=== PATIENT | male | born 1985 | race Caucasian/White ===

== ENCOUNTER 2016-12-30 00:13 | Emergency (ER) | payer BC, OTHER ==
[2016-12-30] VITALS (7 sets, daily range): BP systolic 104–119; BP diastolic 60–74; PULSE 65–78; RESP 14–18; TEMP 97.8–98.9; O2SAT 98–100
[~2016-12-30] VITALS: Ht 167.6 cm; Wt 55.0 kg
[2016-12-30] MEDS ORDERED: SODIUM CHLORIDE 0.9% FLUSH 10 ML FLUSH IVF PRN (01:15)
[2016-12-30 01:22] LABS: AUTOMATED NEUTROPHIL # 3.3 TH/MM3 (1.8-7.7); BASOPHIL % 0.5 % (0.0-2.0); EOSINOPHIL # 0.2 TH/MM3 (0-0.4); EOSINOPHIL % 2.9 % (0.0-4.0); HEMATOCRIT 39.3 % (39.0-51.0); HEMO FLAGS DIFF FINAL; LYMPH % 41.8 % (9.0-44.0); LYMPHOCYTE # 2.8 TH/MM3 (1.0-4.8); MEAN CELL VOLUME 90.5 FL (80.0-100.0); MEAN CORPUSCULAR HEMOGLOBIN 32.4 PG (27.0-34.0); MEAN CORPUSCULAR HGB CONC 35.8 % (32.0-36.0); MONO % 6.6 % (0.0-8.0); NEUT % 48.2 % (16.0-70.0); PLATELET COUNT 197 TH/MM3 (150-450); RED BLOOD COUNT 4.34 MIL/MM3 (4.50-5.90); RED CELL DISTRIBUTION WIDTH 12.7 % (11.6-17.2); WHITE BLOOD COUNT 6.8 TH/MM3 (4.0-11.0)
[2016-12-30 01:39] LABS: ALT (GPT) 18 U/L (12-78); ANION GAP 7 MEQ/L (5-15); AST (GOT) 15 U/L (15-37); BICARBONATE 27.5 MEQ/L (21.0-32.0); BLOOD UREA NITROGEN 10 MG/DL (7-18); CHLORIDE 112 MEQ/L (98-107); GLOMERULAR FILTRATION RATE 97 ML/MIN (>89); POTASSIUM 3.6 MEQ/L (3.5-5.1); SODIUM (NA) 146 MEQ/L (136-145)
[2016-12-30 01:41] LABS: ACETAMINOPHEN LESS THAN 2.0 MCG/ML (10.0-30.0); ALKALINE PHOSPHATASE 56 U/L (45-117); TOTAL BILIRUBIN ADULT 0.2 MG/DL (0.2-1.0)
[2016-12-30] MEDS ORDERED: SODIUM CHLOR 0.9% 1000 ML INJ 1,000 ML IV SCH (02:00)
[2016-12-30 02:46] LABS: BLOOD, URINE NEG (NEG); GLUCOSE,URINE NEG (NEG); KETONE, URINE NEG (NEG); NITRITE,URINE NEG (NEG); PH, URINE 5.5 (5.0-8.5); URINE COLOR LIGHT-YELLOW (YELLW/STRAW)
[2016-12-30 02:50] LABS: COMMENT (UR) CULT NOT INDICATED; CULTURE IF INDICATED CULT NOT INDICATED
[2016-12-30 02:53] LABS: AMPHETAMINE, URINE NEG (NEG); BARBITURATES, URINE NEG (NEG); COCAINE, URINE NEG (NEG)
--- NOTE | 2016-12-30 04:39 | PD ---
HPI Chief Complaint: OD/ Ingestion Time Seen by Provider: 01:05 Travel History International Travel<30 days: No Contact w/Intl Traveler<30days: No Traveled to known affect area: No History of Present Illness HPI This is a 31-year-old male who presents to the emergency department having been intoxicated and then intentionally taking 2 bottles of NyQuil. He says at that time he was trying to hurt himself but he doesn't really want to he was just going through some things. History is limited as patient is quite intoxicated. PFSH Past Medical History Immunizations Current: Yes Tetanus Vaccination: Unknown Influenza Vaccination: No Past Surgical History Surgical History: No Previous Surgery Social History Alcohol Use: Yes (SOCIALLY) Tobacco Use: Yes (SMOKES 1 PACK PER DAY, SMOKING FOR 2 YEARS, LAST SMOKED 15 MINS AGO) Substance Use: Yes (CIGARETTES 1 PACK PER DAY FOR 2 YEARS ) Allergies-Medications (Allergen,Severity, Reaction): Coded Allergies: No Known Allergies (Verified , 12/30/16) Reported Meds & Prescriptions Reported Meds & Active Scripts Active No Active Prescriptions or Reported Medications Review of Systems ROS Limitations: Intoxication Physical Exam Narrative GENERAL:Well appearing, no acute distress SKIN: Focused skin assessment warm and dry. HEAD: Atraumatic. Normocephalic. EYES: Pupils are dilated. no injection or drainage. ENT: Moist mucous membranes NECK: Trachea midline. CARDIOVASCULAR: Tachycardic. No murmur appreciated. RESPIRATORY: Clear to auscultation. Breath sounds equal bilaterally. GASTROINTESTINAL: Abdomen soft, non-tender, nondistended. MUSCULOSKELETAL: No obvious deformities. NEUROLOGICAL: Awake and alert. No obvious cranial nerve deficits. Moving all extremities. PSYCHIATRIC: Appropriate mood and affect; insight and judgment normal. Data Data Last Documented VS Vital Signs Date Time Temp Pulse Resp B/P Pulse Ox O2 Delivery O2 Flow Rate FiO2 12/30/16 03:30 77 16 111/74 99 Room Air 12/30/16 00:15 98.0 Orders Electrocardiogram (12/30/16 01:05) Complete Blood Count With Diff (12/30/16 01:05) Comprehensive Metabolic Panel (12/30/16 01:05) Urinalysis - C+S If Indicated (12/30/16 01:05) Iv Access Insert/Monitor (12/30/16 01:05) Ecg Monitoring (12/30/16 01:05) Oximetry (12/30/16 01:05) Sodium Chloride 0.9% Flush (Ns Flush) (12/30/16 01:15) Drug Screen, Random Urine (12/30/16 01:05) Alcohol (Ethanol) (12/30/16 01:05) Salicylates (Aspirin) (12/30/16 01:05) Tylenol (Acetaminophen) (12/30/16 01:05) Sodium Chlor 0.9% 1000 Ml Inj (Ns 1000 M (12/30/16 02:00) Psych Screen (12/30/16 02:08) Tylenol (Acetaminophen) (12/30/16 03:45) Salicylates (Aspirin) (12/30/16 03:45) Labs Laboratory Tests Test 12/30/16 12/30/16 12/30/16 00:30 01:05 03:55 Urine Color LIGHT-YELLOW Urine Turbidity CLEAR Urine pH 5.5 Urine Specific [place] 1.011 Urine Protein NEG mg/dL Urine Glucose (UA) NEG mg/dL Urine Ketones NEG mg/dL Urine Occult Blood NEG Urine Nitrite NEG Urine Bilirubin NEG Urine Urobilinogen LESS THAN 2.0 MG/DL Urine Leukocyte Esterase NEG Microscopic Urinalysis Comment CULT NOT INDICATED Urine Opiates Screen NEG Urine Barbiturates Screen NEG Urine Amphetamines Screen NEG Urine Benzodiazepines Screen NEG Urine Cocaine Screen NEG Urine Cannabinoids Screen NEG White Blood Count 6.8 TH/MM3 Red Blood Count 4.34 MIL/MM3 Hemoglobin 14.1 GM/DL Hematocrit 39.3 % Mean Corpuscular Volume 90.5 FL Mean Corpuscular Hemoglobin 32.4 PG Mean Corpuscular Hemoglobin 35.8 % Concent Red Cell Distribution Width 12.7 % Platelet Count 197 TH/MM3 Mean Platelet Volume 9.0 FL Neutrophils (%) (Auto) 48.2 % Lymphocytes (%) (Auto) 41.8 % Monocytes (%) (Auto) 6.6 % Eosinophils (%) (Auto) 2.9 % Basophils (%) (Auto) 0.5 % Neutrophils # (Auto) 3.3 TH/MM3 Lymphocytes # (Auto) 2.8 TH/MM3 Monocytes # (Auto) 0.4 TH/MM3 Eosinophils # (Auto) 0.2 TH/MM3 Basophils # (Auto) 0.0 TH/MM3 CBC Comment DIFF FINAL Differential Comment Sodium Level 146 MEQ/L Potassium Level 3.6 MEQ/L Chloride Level 112 MEQ/L Carbon Dioxide Level 27.5 MEQ/L Anion Gap 7 MEQ/L Blood Urea Nitrogen 10 MG/DL Creatinine 0.92 MG/DL Estimat Glomerular Filtration 97 ML/MIN Rate Random Glucose 78 MG/DL Calcium Level 7.9 MG/DL Total Bilirubin 0.2 MG/DL Aspartate Amino Transf 15 U/L (AST/SGOT) Alanine Aminotransferase 18 U/L (ALT/SGPT) Alkaline Phosphatase 56 U/L Total Protein 6.8 GM/DL Albumin 3.6 GM/DL Salicylates Level LESS THAN 1.7 LESS THAN 1.7 MG/DL MG/DL Acetaminophen Level LESS THAN 2.0 MCG/ML Ethyl Alcohol Level 138 MG/DL MDM Medical Decision Making Medical Screen Exam Complete: Yes Emergency Medical Condition: Yes Interpretation(s) Afebrile, no tachycardia, normotensive No leukocytosis Hypernatremia Urinalysis: No infection Alcohols 138 Differential Diagnosis Acute alcohol intoxication, acetaminophen toxicity, salicylate toxicity Narrative Course This is a 31-year-old male who presents to the emergency department having drink alcohol and reportedly taken 2 bottles of NyQuil and attempt to hurt himself. He is under a Perez act. Labs are obtained which were all reassuring. Patient is clear for psychiatric evaluation. Diagnosis Primary Impression: Alcohol intoxication Qualified Code: F10.920 - Alcohol intoxication, uncomplicated Additional Impression: Overdose Qualified Code: T50.902A - Overdose, intentional self-harm, initial encounter Scripts No Active Prescriptions or Reported Meds Ritu Shrestha MD Dec 30, 2016 04:39
[2016-12-30 06:27] LABS: INDIRECT BILIRUBIN 0.2 MG/DL (0.0-0.8); TOTAL BILIRUBIN ADULT 0.3 MG/DL (0.2-1.0)
--- NOTE | 2016-12-30 08:33 | EKG ---
Date Performed: 12/30/2016 Time Performed: 00:54:55 PTAGE: 31 years EKG: Sinus rhythm NORMAL ECG NO PREVIOUS TRACING DOCTOR: Hugo Baumann Interpretating Date/Time 12/30/2016 08:31:35
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
== END 2016-12-30 17:53 | disposition home or self-care (01) ==
LOC: NEPE 00:13 → NEPJ 17:53
DX: T45.0X2A Poisoning by antiallergic and antiemetic drugs, intentional self-harm, initial encounter (principal); F10.129 Alcohol abuse with intoxication, unspecified; E87.0 Hyperosmolality and hypernatremia; F17.210 Nicotine dependence, cigarettes, uncomplicated
CPT/HCPCS: 80053; 80076; 80307; 81001; 85025; 93005; 96360; 99284; J7030